=== PATIENT | male | born 1960 | race African-American/Black ===

== ENCOUNTER 2024-04-29 17:02 | Observation (INO) | payer OTHER ==
[2024-04-29 17:56] VITALS: BMI 23.1
[2024-04-29 18:53] LABS: BASO % 0.8 % (0-2.0); HEMATOCRIT 32.6 % (35.4-49); HEMOGLOBIN 11.5 GM/dL (11.7-16.9); LYMPH % 17.7 % (8-40); MCH 33.9 pg (25.7-33.7); MCHC 35.1 g/dl (32.0-35.9); MEAN CELL VOLUME 96.4 fl (80-96); MEAN PLT VOLUME 6.6 fl (7.5-11.1); MONO % 6.8 % (3.8-10.2); NEUT % 71.7 % (42.8-82.8); PLATELET COUNT 264 10^3/uL (134-434); RBC 3.38 M/mm3 (4.00-5.60); RDW 12.7 % (11.9-15.9); WHITE BLOOD COUNT 7.4 K/mm3 (4.0-10.0)
[2024-04-29] MEDS: ACETAMINOPHEN 1000 MG/100 ML BAG IVPB ONE (19:03)
[2024-04-29 19:10] LABS: PH,URINE 6.5 (5.0-8.0); URINE APPEARANCE CLEAR; URINE BILIRUBIN NEGATIVE (NEGATIVE); URINE COLOR YELLOW; URINE GLUCOSE (UA) 1+ (NEGATIVE); URINE KETONE NEGATIVE (NEGATIVE); URINE LEUK ESTERASE NEGATIVE (NEGATIVE); URINE NITRITE NEGATIVE (NEGATIVE); URINE PROTEIN NEGATIVE (NEGATIVE)
[2024-04-29 19:18] LABS: POTASSIUM 3.9 mmol/L (3.5-5.1)
[2024-04-29 19:20] LABS: CALCIUM 8.6 mg/dL (8.5-10.1)
[2024-04-29 19:21] LABS: ALBUMIN 2.8 g/dl (3.4-5.0); BLOOD UREA NITROGEN 20.5 mg/dL (7-18); MAGNESIUM 1.6 mg/dL (1.8-2.4)
[2024-04-29 19:23] LABS: CREATININE 1.3 mg/dL (0.55-1.3)
[2024-04-29 19:26] LABS: BILIRUBIN,TOTAL 0.3 mg/dL (0.2-1); TOT PROT 6.4 g/dl (6.4-8.2)
[2024-04-29] MEDS ORDERED: CEFTRIAXONE 1 GM/50 ML BAG ONE (21:10)
[2024-04-29] MEDS: CEFTRIAXONE 1,000 MG in DEXTROSE 5%-WATER - 50 ML IVPB ONE (21:17)
[2024-04-29] MEDS ORDERED: AZITHROMYCIN IVPB 500 MG/250 ML BAG IVPB ONE (22:11)
[2024-04-29] MEDS: AZITHROMYCIN IVPB 500 MG in DEXTROSE 5%-WATER - 250 ML IVPB ONE (22:24)
[2024-04-29] MEDS ORDERED: MAGNESIUM SULFATE IN WATER 2 GM/50 ML IVPB IVPB ONE (23:49)
[2024-04-29] MEDS: MAGNESIUM 2GM/50ML STERILE WATER IVPB IVPB ONE (23:52)
[2024-04-30] MEDS: LORazepam 2 MG/ML SDV VIAL IVPUSH ONE (01:59)
[2024-04-30] MEDS: INSULIN ASPART SLIDING SCALE (NOVOLOG) 1 VIAL SQ SCH (06:39)
[2024-04-30 10:22] LABS: HEMATOCRIT 34.1 % (35.4-49); HEMOGLOBIN 11.6 GM/dL (11.7-16.9); MCH 32.9 pg (25.7-33.7); MCHC 34.1 g/dl (32.0-35.9); MEAN CELL VOLUME 96.5 fl (80-96); MEAN PLT VOLUME 7.4 fl (7.5-11.1); PLATELET COUNT 260 10^3/uL (134-434); RBC 3.53 M/mm3 (4.00-5.60); RDW 12.9 % (11.9-15.9); WHITE BLOOD COUNT 7.7 K/mm3 (4.0-10.0)
[2024-04-30] MEDS: LACTATED RINGERS SOLUTION 1,000 ML/1,000 ML INFUS.BAG IV SCH (10:38)
[2024-04-30 10:39] LABS: POTASSIUM 3.6 mmol/L (3.5-5.1)
[2024-04-30] MEDS: ENOXAPARIN NA (PORCINE) 40 MG/0.4 ML DISP.SYRIN SQ SCH (10:40)
[2024-04-30] MEDS: NICOTINE 14 MG/24 HOURS TOPICAL PATCH TD SCH (10:40)
[2024-04-30 10:45] LABS: CALCIUM 8.6 mg/dL (8.5-10.1)
[2024-04-30 10:46] LABS: MAGNESIUM 2.1 mg/dL (1.8-2.4)
[2024-04-30 10:47] LABS: ALBUMIN 2.6 g/dl (3.4-5.0); BLOOD UREA NITROGEN 16.5 mg/dL (7-18); CHOLESTEROL 164 mg/dL (50-200)
[2024-04-30] MEDS: ISOSORBIDE MONONITRATE 30 MG TAB.SR.24H (FP) PO SCH (10:47)
[2024-04-30] MEDS: hydrALAZINE HCL 25 MG TABLET (FP) PO SCH (10:47)
[2024-04-30 10:49] LABS: CREATININE 1.3 mg/dL (0.55-1.3); LDL CHOLESTEROL (ONLY SJRH) 116 mg/dL (5-100); PHOSPHOROUS 2.8 mg/dL (2.5-4.9)
[2024-04-30 10:50] LABS: BILIRUBIN,TOTAL 0.6 mg/dL (0.2-1); TOT PROT 5.9 g/dl (6.4-8.2)
[2024-04-30 10:51] LABS: HDL CHOLESTEROL 42 mg/dL (40-60)
[2024-04-30] MEDS: ASPIRIN 81 MG CHEWABLE TABLETS PO SCH (16:58)
[2024-04-30] MEDS: LISINOPRIL 20 MG TABLET PO SCH (16:58)
[2024-04-30] MEDS: MELATONIN 5 MG TABLETS PO SCH (21:53)
[2024-04-30] MEDS ORDERED: ACETAMINOPHEN 1000 MG/100 ML BAG IVPB PRN (22:50)
[2024-04-30] MEDS: ACETAMINOPHEN 1000 MG/100 ML BAG IVPB ONE (23:02)
[2024-05-01] MEDS: traMADol HCL 50 MG TABLET PO ONE (06:20)
[2024-05-01 08:04] LABS: POTASSIUM 3.7 mmol/L (3.5-5.1)
[2024-05-01 08:05] LABS: CALCIUM 8.4 mg/dL (8.5-10.1)
[2024-05-01 08:06] LABS: BLOOD UREA NITROGEN 13.8 mg/dL (7-18)
[2024-05-01 08:09] LABS: CREATININE 1.2 mg/dL (0.55-1.3)
[2024-05-01] MEDS: traMADol HCL 50 MG TABLET PO PRN (10:08)
[2024-05-02] MEDS: ACETAMINOPHEN 1000 MG/100 ML BAG IVPB PRN (16:47)
[2024-05-03 12:39] LABS: BASO % 0.5 % (0-2.0); HEMOGLOBIN 11.1 GM/dL (11.7-16.9); LYMPH % 19.2 % (8-40); MCH 33.2 pg (25.7-33.7); MCHC 34.7 g/dl (32.0-35.9); MEAN CELL VOLUME 95.7 fl (80-96); MEAN PLT VOLUME 7.5 fl (7.5-11.1); MONO % 7.5 % (3.8-10.2); NEUT % 69.8 % (42.8-82.8); PLATELET COUNT 246 10^3/uL (134-434); RBC 3.35 M/mm3 (4.00-5.60); RDW 12.4 % (11.9-15.9); WHITE BLOOD COUNT 5.2 K/mm3 (4.0-10.0)
[2024-05-03 13:06] LABS: POTASSIUM 3.9 mmol/L (3.5-5.1)
[2024-05-03 13:08] LABS: CALCIUM 8.5 mg/dL (8.5-10.1)
[2024-05-03 13:09] LABS: ALBUMIN 2.6 g/dl (3.4-5.0); BLOOD UREA NITROGEN 10.2 mg/dL (7-18); MAGNESIUM 2.1 mg/dL (1.8-2.4)
[2024-05-03 13:12] LABS: BILIRUBIN,DIRECT 0.2 mg/dL (0.0-0.2); CREATININE 1.1 mg/dL (0.55-1.3)
[2024-05-03 13:13] LABS: BILIRUBIN,TOTAL 0.7 mg/dL (0.2-1)
[2024-05-04] MEDS: hydrALAZINE HCL 20 MG/ML VIAL IVPUSH ONE (00:58)
[2024-05-04] MEDS: hydrALAZINE HCL 25 MG TABLET (FP) PO ONE (01:17)
[2024-05-06] MEDS: hydrALAZINE HCL 25 MG TABLET (FP) PO ONE (19:06)
[2024-05-06] MEDS: hydrALAZINE HCL 25 MG TABLET (FP) PO SCH (21:39)
[2024-05-07 08:57] LABS: HEMATOCRIT 33.1 % (35.4-49); HEMOGLOBIN 11.3 GM/dL (11.7-16.9); MCH 32.9 pg (25.7-33.7); MCHC 34.2 g/dl (32.0-35.9); MEAN CELL VOLUME 96.4 fl (80-96); MEAN PLT VOLUME 7.5 fl (7.5-11.1); PLATELET COUNT 255 10^3/uL (134-434); RBC 3.43 M/mm3 (4.00-5.60); RDW 12.7 % (11.9-15.9); WHITE BLOOD COUNT 5.5 K/mm3 (4.0-10.0)
[2024-05-07 09:30] LABS: CREATININE 1.3 mg/dL (0.55-1.3)
[2024-05-07 09:31] LABS: ALBUMIN 2.8 g/dl (3.4-5.0)
[2024-05-07 09:32] LABS: BILIRUBIN,TOTAL 0.8 mg/dL (0.2-1); TOT PROT 6.1 g/dl (6.4-8.2)
[2024-05-07 09:33] LABS: BILIRUBIN,DIRECT 0.2 mg/dL (0.0-0.2); CALCIUM 8.4 mg/dL (8.5-10.1); MAGNESIUM 2.2 mg/dL (1.8-2.4)
[2024-05-07 09:34] LABS: BLOOD UREA NITROGEN 12.8 mg/dL (7-18); PHOSPHOROUS 3.8 mg/dL (2.5-4.9)
[2024-05-07] MEDS: ACETAMINOPHEN 325 MG TABLET (FP) PO PRN (21:45)
[2024-05-10 13:59] VITALS: BP 151/99; PULSE 55; RESP 20; TEMP 98.4
== END 2024-05-10 15:00 | disposition home or self-care (01) ==
LOC: JER 17:02 → JERBED 20:54 → J7W 04-30 00:48
PROVIDERS: ADMIT Internal Medicine; ATTEND Nurse Practitioner
PROC: 3E03329 Introduction of Other Anti-infective into Peripheral Vein, Percutaneous Approach (ICD-10-PCS; principal; 2024-04-29)
PROC: 3E033NZ Introduction of Analgesics, Hypnotics, Sedatives into Peripheral Vein, Percutaneous Approach (ICD-10-PCS; 2024-04-29)
PROC: 3E033GC Introduction of Other Therapeutic Substance into Peripheral Vein, Percutaneous Approach (ICD-10-PCS; 2024-04-29)
DX: I16.0 Hypertensive urgency (principal); M43.16 Spondylolisthesis, lumbar region; I69.351 Hemiplegia and hemiparesis following cerebral infarction affecting right dominant side; R53.1 Weakness; R06.09 Other forms of dyspnea; E11.65 Type 2 diabetes mellitus with hyperglycemia; E83.42 Hypomagnesemia; R74.8 Abnormal levels of other serum enzymes; D64.9 Anemia, unspecified; Z91.148 Patient's other noncompliance with medication regimen for other reason
CPT/HCPCS: 36415; 70470-TC; 71045-TC-FY; 71250-TC; 72148-TC; 73700-TC-RT; 80048; 80053; 80061; 80076; 80307; 81003; 82272; 82728; 82962; 83036; 83540; 83550; 83735; 83880; 84100; 84443; 84466; 84484; 85025; 85027; 85045; 87040; 87086; 93005; 93010; 93306-TC; 93971-TC; 96365; 96368; 96375; 96376; 97116-GP; 97162-GP; 99285-25; G0378; J0131; Q9967